=== PATIENT | female | born 1960 | race Caucasian/White ===

== ENCOUNTER 2017-06-07 06:06 | Day surgery (SDC) | payer OTHER ==
[2017-06-07 06:26] VITALS: RESP 16
[2017-06-07] MEDS ORDERED: LIDOCAINE 1% 2 ML INJ ID PRN (06:27)
[2017-06-07] MEDS ORDERED: LR 1,000 ML IV ONE (06:27)
[2017-06-07] MEDS ORDERED: LIDOCAINE 2% 5 ML SDV ONE (07:12)
[2017-06-07] MEDS ORDERED: PROPOFOL/EMULSION 500 MG/50 ML BOTTLE IV ONE (07:12)
[2017-06-07] MEDS ORDERED: fentaNYL 100 MCG/2 ML INJ IVP PRN ×2 (07:21)
[2017-06-07] MEDS ORDERED: ACETAMINOPHEN 500 MG TAB PO PRN (07:21)
[2017-06-07] MEDS ORDERED: ONDANSETRON 4 MG/2 ML VIAL IVP PRN (07:21)
[2017-06-07] MEDS ORDERED: NALOXONE HCL 0.4 MG/ML INJ IVP PRN (07:21)
--- NOTE | 2017-06-07 07:22 | PDGENHP ---
History & Physical Chief Complaint: colon polyp History of Present Illness: colon polyp iwth recurrence Pertinent Past, Social, Family History: reviewed Relevant Physical Exam: NAD Cardiorespiratory Assessment: RRR. clear breathing
--- NOTE | 2017-06-07 07:23 | PDANEPAE ---
ANE History of Present Illness Colonoscopy ANE Past Medical History - Cardiovascular History Hx Hypertension: No Hx Arrhythmias: No Hx Chest Pain: No Hx Coronary Artery / Peripheral Vascular Disease: No Hx CHF / Valvular Disease: No Hx Palpitations: No - Pulmonary History Hx COPD: No Hx Asthma/Reactive Airway Disease: No Hx Recent Upper Respiratory Infection: No Hx Oxygen in Use at Home: No Hx Sleep Apnea: No Sleep Apnea Screening Result - Last Documented: Negative Pulmonary History Comment: EXERCISE INDUCED ASTHMA - Neurologic History Hx Cerebrovascular Accident: No Hx Seizures: No Hx Dementia: No - Endocrine History Hx Diabetes: Yes Endocrine History Comment: HYPOTHYROID - Renal History Hx Renal Disorders: No - Liver History Hx Hepatic Disorders: No - Neurological & Psychiatric Hx Hx Neurological and Psychiatric Disorders: No - Cancer History Hx Cancer: No - Congenital Disorder History Hx Congenital Disorders: No - GI History Hx Gastrointestinal Disorders: No - Other Health History Other Health History: NEG - Chronic Pain History Chronic Pain: No - Surgical History Prior Surgeries: R TKA. APPENDECTOMY. TONSILLECTOMY & ADENOIDECTOMY ANE Review of Systems Review of systems is: negative - Exercise capacity METS (RN): 5 METS ANE Patient History - Allergies Allergies/Adverse Reactions: No Known Allergies Allergy (Unverified 05/07/17 10:54) - Home Medications Home Medications: Aspirin 81mg (*) 05/07/17 [Last Taken 1 Month Ago] Levothyroxine 05/07/17 [Last Taken 06/02/17] - NPO status NPO Since - Liquids (Date): 06/06/17 NPO Since - Liquids (Time): 20:00 NPO Since - Solids (Date): 06/05/17 NPO Since - Solids (Time): 20:00 - Smoking Hx Smoking Status: Never smoked - Family Anes Hx Family Hx Anesthesia Complications: NEG ANE Labs/Vital Signs - Vital Signs Blood Pressure: 146/82 Heart Rate: 59 Respiratory Rate: 16 O2 Sat (%): 97 Height: 167.64 cm Weight: 61.235 kg ANE Physical Exam - Airway Neck exam: FROM Mallampati Score: Class 2 Mouth exam: normal dental/mouth exam - Pulmonary Pulmonary: clear to auscultation - Cardiovascular Cardiovascular: regular rate and rhythym - ASA Status ASA Status: II ANE Anesthesia Plan Anesthesia Plan: GA with mask
[2017-06-07] MEDS ORDERED: ONDANSETRON 4 MG/2 ML VIAL ONE (07:37)
--- NOTE | 2017-06-07 08:06 | POSTANESTH ---
Post Anesthetic Evaluation Cardiovascular Status: Normal, Stable Respiratory Status: Normal, Stable Level of Consciousness/Mental Status: Can Participate in Eval, Alert and Oriented Pain Control: Adequate, Prn Tx Ordered Nausea/Vomiting Control: Adequate, Prn Tx Ordered Complications Possibly Related to Anesthesia: None Noted
[2017-06-07 08:19] VITALS: TEMP 96.8
--- NOTE | 2017-06-07 08:37 | GPN ---
[f rep st] PROCEDURE NOTE DATE OF PROCEDURE: 06/07/2017 PROCEDURE: Colonoscopy with snare. INDICATION: History of piecemeal resection of cecal polyp which subsequently recurred and was treat ed with APC. Exam today is surveillance to confirm complete eradication of polyp. CONSENT: Informed consent was obtained from the patient after a discussion of risks, benefits, and alternatives to the procedure. MEDICATIONS GIVEN: Propofol per Anesthesia. DESCRIPTION OF EXAM: After adequate sedation was achieved, the colonoscope was advanced under direc t vision through the anal orifice and as far as the cecum and terminal ilium. Good views were obtai joselito throughout. The prep quality was excellent. COMPLICATIONS: None. ESTIMATED BLOOD LOSS: None. FINDINGS: 1. Cecal polypectomy site was identified just proximal to the ileocecal valve. Scar was present an d there was no recurrent polyp seen on under both white light imaging and narrow band imaging. Ther e was no nodularity or areas of concern. 2. A 3 mm polyp was removed with cold snare from the transverse colon. 3. Small internal hemorrhoids were seen. IMPRESSION: No recurrent polyp at previous ileocecal polypectomy site. A small polyp removed from transverse colon with cold snare. RECOMMENDATIONS: 1. Tentative plan for repeat colonoscopy in 3 years given no recurrent polyp at the ileocecal valve and only 1 small polyp removed today. 2. Await pathology results. 3. Regular diet. 4. Continue present medications. 5. Thank you for allowing me to participate in this patient's care. Addendum: At the patient's request, the anesthesiologist, Dr. Azar, did flex her knee to assist he r range of motion post knee replacement last year. /[id number]/MODL
[2017-06-07 08:40] VITALS: BP 119/81; PULSE 50; O2SAT 97
== END 2017-06-07 08:50 | disposition home or self-care (01) ==
LOC: FSGY 06:06
PROVIDERS: ATTEND Internal Medicine
PROC: 0DBL8ZX Excision of Transverse Colon, Via Natural or Artificial Opening Endoscopic, Diagnostic (ICD-10-PCS; principal; 2017-06-07 07:30)
DX: Z12.11 Encounter for screening for malignant neoplasm of colon (principal); D12.3 Benign neoplasm of transverse colon; K64.8 Other hemorrhoids
CPT/HCPCS: J2405; J2704

== ENCOUNTER → 2018-02-27 | Outpatient (CLI) | payer OTHER | LOC: MERGE 08:34 → CIMAGING 08:34 | PROVIDERS: ATTEND Internal Medicine | DX: Z12.31 Encounter for screening mammogram for malignant neoplasm of breast (principal) ==

== ENCOUNTER → 2018-03-13 | Outpatient (CLI) | payer OTHER | LOC: CIMAGING 12:43 | PROVIDERS: ATTEND Internal Medicine | DX: R92.8 Other abnormal and inconclusive findings on diagnostic imaging of breast (principal) | CPT/HCPCS: 76641-PO ==

== ENCOUNTER → 2019-03-12 | Outpatient (CLI) | payer OTHER | LOC: FIMAGING 08:14 | PROVIDERS: ATTEND Internal Medicine | DX: Z12.31 Encounter for screening mammogram for malignant neoplasm of breast (principal) ==